=== PATIENT | male | born 1955 | race Caucasian/White ===

== ENCOUNTER 2024-10-11 15:01 | Emergency (ER) | payer OTHER, SELFPAY ==
[2024-10-11 15:14] VITALS: BP 102/67; PULSE 82; RESP 20; TEMP 36.6; O2SAT 95
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
--- NOTE | 2024-10-11 16:07 | PC.NURSE ---
Pt got up and left and stated he did not want to wait for his paperwork because he was hungry. PT also stated he was happy with the provider that seen him he did a good job
--- NOTE | 2024-10-11 17:10 | PC.NURSE ---
Patient eloped prior to receiving discharge paperwork. patient refused medications, patient stated he did not want to wait and he understood when to have sutures removed.
== END 2024-10-11 17:15 | disposition home or self-care (01) ==
LOC: SERX 17:23
PROVIDERS: Emergency Provider Emergency Medicine
DX: S61.217A Laceration without foreign body of left little finger without damage to nail, initial encounter (principal); V28.49XA Other motorcycle driver injured in noncollision transport accident in traffic accident, initial encounter
CPT/HCPCS: 12002; 99283

== ENCOUNTER 2024-10-20 10:08 | Outpatient (CLI) | payer OTHER, SELFPAY ==
[2024-10-17 11:00] VITALS: BMI 19.2
[2024-10-20] VITALS (8 sets, daily range): BP systolic 93–118; BP diastolic 55–72; PULSE 45–73; RESP 12–23; TEMP 36.6; O2SAT 95–97
[2024-10-20] MEDS: fentaNYL CIT INJ 50 mCg/ML AMP 2ML 75 MCG IVP (12:24)
[2024-10-20] MEDS: MIDAZOLAM INJ 1 MG/ML VIAL 2 ML 2 MG IV (12:24)
--- NOTE | 2024-10-20 12:29 | EKG_ITS ---
[facility] Test Date: 2024-10-20 Pat Name: DOUGLAS BAKER Department: Room: - Gender: Male [employer]: : 1955 Requested By: Que Roberts Order Number: [id number] Reading MD: Que Roberts Measurements Intervals Concepcion Rate: 43 P: 88 VA: 173 QRS: -70 QRSD: 109 T: 100 QT: 456 QTc: 389 Interpretive Statements SINUS BRADYCARDIA WITH OCCASIONAL SUPRAVENTRICULAR PREMATURE COMPLEXES POSSIBLE LEFT ATRIAL ENLARGEMENT PATTERN CONSISTENT WITH PULMONARY DISEASE LEFT ANTERIOR FASCICULAR BLOCK NONSPECIFIC T-WAVE ABNORMALITY Compared to ECG 10/29/2022 05:07:35 Atrial fibrillation no longer present Ventricular premature complex(es) no longer present Aberrant conduction of supraventricular beat(s) no longer present Left ventricular hypertrophy no longer present Possible ischemia no longer present T-wave abnormality still present /store/S0/[id number]/ecg/[id number].pdf
--- NOTE | 2024-10-20 17:49 | ESOP_ITS ---
RE: DOUGLAS BAKER : 1955 DATE OF PROCEDURE September, PROCEDURE PERFORMED: Synchronized cardioversion. PREPROCEDURE DIAGNOSIS: Atrial fibrillation. POSTPROCEDURE DIAGNOSES: 1. Successful synchronous cardioversion using 100 joules of energy. 2. Conscious sedation 30 minutes duration. DIAGNOSIS: Atrial fibrillation, rapid ventricular response, symptomatic. HISTORY AND INDICATIONS: The patient is a 69-year-old male with history of hypertension, paroxysmal atrial fibrillation, rapid rate control, now has symptoms of shortness of breath and palpitations. Synchronous cardioversion recommended. The patient has been anticoagulated more than one month with Eliquis and synchronized cardioversion is recommended. PROCEDURE IN DETAIL: The patient was brought to cardiac catheterization laboratory. _ was given 2 mg of Versed and 50 mcg of fentanyl for sedation. . Synchronized cardioversion using only 100 joules of energy x1, converted to sinus rhythm, sinus bradycardia. EKG showed heart rate of 45, marked sinus bradycardia. RECOMMENDATIONS: Continue medical management. Discontinue metoprolol completely, and we will monitor closely. Continue Eliquis. Monitor the patient again for further recurrence of arrhythmia. DT: 16:23:54 TT: 17:25:00 Ref: [id number] - TID: [id number] MTDD
== END 2024-10-20 14:00 | disposition home or self-care (01) ==
PROVIDERS: PCP Internal Medicine; Referring Provider Internal Medicine Cardiovascular Disease; Visit Provider Internal Medicine Cardiovascular Disease
PROC: 5A2204Z Restoration of Cardiac Rhythm, Single (ICD-10-PCS; CPT 92960; principal; 2024-10-20 11:30)
DX: I48.0 Paroxysmal atrial fibrillation (principal); R00.1 Bradycardia, unspecified; I10 Essential (primary) hypertension; E11.9 Type 2 diabetes mellitus without complications; I42.8 Other cardiomyopathies; I49.3 Ventricular premature depolarization; J44.9 Chronic obstructive pulmonary disease, unspecified; Z79.01 Long term (current) use of anticoagulants; Z79.84 Long term (current) use of oral hypoglycemic drugs; Z79.899 Other long term (current) drug therapy
CPT/HCPCS: 92960; 93005; J2250; J3010

== ENCOUNTER → 2024-10-28 | Outpatient (CLI) | payer OTHER, SELFPAY ==
[2024-10-28 09:47] LABS: Basophils % (Auto) 1 % (0-2.5); Eosinophils # (Auto) 0.2 Thou/mm3 (0.0-0.5); Eosinophils % (Auto) 3 % (0-10); Hematocrit 40.5 % (41.0-53.0); Hemoglobin 13.7 g/dL (13.5-16.0); Immature Granulocytes % (Auto) 0 % (0-0); Immature Granulocytes Auto 0.02 Thou/mm3 (0.00-0.00); Lymphocytes # (Auto) 2.8 Thou/mm3 (1.0-4.8); Lymphocytes % (Auto) 38 % (10-50); Mean Corpuscular HGB Conc 33.8 g/dl (31.0-37.0); Mean Corpuscular Hemoglobin 30.9 pg (25.0-35.0); Mean Corpuscular Volume 91 fL (80-100); Monocytes # (Auto) 0.5 Thou/mm3 (0.0-0.8); Monocytes % (Auto) 7 % (0-12); Neutrophils # (Auto) 3.7 Thou/mm3 (1.8-7.7); Neutrophils % (Auto) 51 % (37-80); Nucleated Red Blood Cell % 0 /100 WBC (0); Platelet Count 212 Thou/mm3 (140-440); RDW Standard Deviation 42.9 fL (35.1-43.9); Red Blood Count 4.44 Miln/mm3 (4.50-5.90); White Blood Count 7.2 Thou/mm3 (3.8-10.6)
[2024-10-28 09:58] LABS: Glucose Estimated Average 183 mg/dL (80-131)
[2024-10-28 10:04] LABS: Prostate Specific Antigen 0.96 ng/mL (0-4.00)
[2024-10-28 10:09] LABS: Vitamin B12 505 pg/mL (211-911); Vitamin D 25 Hydroxy Total 47.9 ng/mL (7.3-40.2)
[2024-10-28 10:16] LABS: Collection Type, Urine Clean Catch; Squamous Epithelial Cell,Urine 0 /hpf (0-5)
[2024-10-28 10:28] LABS: Alanine Aminotransferase 20 U/L (10-49); Albumin, Serum 4.2 gm/dL (3.4-4.8); Alkaline Phosphatase 53 U/L (46-116); Anion Gap 5 (7-16); Aspartate Amino Transferase 19 U/L (0-34); BUN/Creatinine Ratio 26 Ratio (12-20); Bilirubin,Total 0.4 mg/dL (0.3-1.2); Blood Urea Nitrogen 26 mg/dL (9-23); Calcium 9.4 mg/dL (8.3-10.6); Calcium (Corrected) 9.4 mg/dL (8.5-10.1); Carbon Dioxide 29.2 mMol/L (20.0-31.0); Chloride 103 mMol/L (98-107); Globulin 2.1 gm/dL (2.3-3.5); Glucose 90 mg/dL (74-106); Osmolality,Calculated 278 (275-295); Potassium 5.2 mMol/L (3.4-5.1); Sodium 137 mMol/L (136-145); Thyroid Stimulating Hormone 3.11 uIU/mL (0.55-4.78); Total Protein 6.3 gm/dL (5.7-8.2); eGFR > 60 See Note
[2024-10-28 10:43] LABS: Bilirubin,Urine Negative (Negative); Blood,Urine Negative (Negative); Clarity,Urine Clear (Clear/Hazy); Color,Urine Lt-Yellow (Lt Yel-Yel); Glucose, Urine Negative (Negative); Hyaline Casts,Urine < 1 /hpf (0-1); Ketones,Urine Negative (Negative); Leukocyte Esterase,Urine Negative (Negative); Nitrite,Urine Negative (Negative); PH,Urine 5.5 (5.0-7.0); Protein,Urine Negative (Neg - Trace); RBC,Urine 1 /hpf (0-3); Specific Gravity,Urine 1.026 (1.001-1.035); Urobilinogen,Urine Negative mg/dL (0.0-1.0); WBC,Urine 2 /hpf (0-5)
[2024-10-28 10:56] LABS: Creatinine MALB Rnd Ur 107 mg/dL (30-125); Microalbumin Creat Ratio 6 mg/gCrea (<30); Microalbumin, Random Urine 6 mg/L (0-300)
[2024-10-28 12:18] LABS: Cardiac Risk Estimate 3.8 RATIO (4.0-6.7); Cholesterol 166 mg/dL (132-200); HDL Cholesterol 44 mg/dL (40-60); LDL Cholesterol,Calculated 97 mg/dL (0-130); Triglycerides 126 mg/dL (30-150); Uric Acid 4.6 mg/dL (3.7-9.2)
== END | disposition home or self-care (01) ==
LOC: COPL 08:57
PROVIDERS: PCP Internal Medicine; Referring Provider Internal Medicine; Visit Provider Internal Medicine
DX: Z00.00 Encounter for general adult medical examination without abnormal findings (principal); E78.5 Hyperlipidemia, unspecified; E11.9 Type 2 diabetes mellitus without complications; I10 Essential (primary) hypertension
CPT/HCPCS: 36415; 80053; 80061; 81001; 82043; 82306; 82570; 82607; 83036; 84153; 84443; 84550; 85025

== ENCOUNTER → 2025-03-09 | Outpatient (CLI) | payer OTHER, SELFPAY ==
[2025-03-09 09:26] LABS: Basophils # (Auto) 0.1 Thou/mm3 (0.0-0.2); Basophils % (Auto) 1 % (0-2.5); Eosinophils # (Auto) 0.2 Thou/mm3 (0.0-0.5); Eosinophils % (Auto) 2 % (0-10); Hematocrit 41.7 % (41.0-53.0); Hemoglobin 13.8 g/dL (13.5-16.0); Immature Granulocytes Auto 0.02 Thou/mm3 (0.00-0.00); Lymphocytes # (Auto) 2.4 Thou/mm3 (1.0-4.8); Lymphocytes % (Auto) 30 % (10-50); Mean Corpuscular HGB Conc 33.1 g/dl (31.0-37.0); Mean Corpuscular Hemoglobin 31.6 pg (25.0-35.0); Mean Corpuscular Volume 95 fL (80-100); Monocytes # (Auto) 0.6 Thou/mm3 (0.0-0.8); Monocytes % (Auto) 7 % (0-12); Neutrophils # (Auto) 4.9 Thou/mm3 (1.8-7.7); Neutrophils % (Auto) 60 % (37-80); Nucleated Red Blood Cell # 0.00 Thou/mm3 (0.00-0.00); Nucleated Red Blood Cell % 0 /100 WBC (0); Platelet Count 209 Thou/mm3 (140-440); RDW Standard Deviation 43.3 fL (35.1-43.9); Red Blood Count 4.37 Miln/mm3 (4.50-5.90); White Blood Count 8.1 Thou/mm3 (3.8-10.6)
[2025-03-09 09:34] LABS: Glucose Estimated Average 171 mg/dL (80-131); Hemoglobin A1C 7.6 % Hgb (4.8-6.0)
[2025-03-09 09:48] LABS: Alanine Aminotransferase 28 U/L (10-49); Albumin, Serum 4.2 gm/dL (3.4-4.8); Albumin/Globulin Ratio 2.2 (1.2-2.2); Alkaline Phosphatase 74 U/L (46-116); Anion Gap 9 (7-16); Aspartate Amino Transferase 21 U/L (0-34); BUN/Creatinine Ratio 16 Ratio (12-20); Bilirubin,Total 0.3 mg/dL (0.3-1.2); Blood Urea Nitrogen 19 mg/dL (9-23); Calcium 9.6 mg/dL (8.3-10.6); Calcium (Corrected) 9.6 mg/dL (8.5-10.1); Carbon Dioxide 27.9 mMol/L (20.0-31.0); Cardiac Risk Estimate 2.4 RATIO (4.0-6.7); Chloride 104 mMol/L (98-107); Cholesterol 112 mg/dL (132-200); Creatinine (Component) 1.2 mg/dL (0.6-1.3); Globulin 1.9 gm/dL (2.3-3.5); Glucose 111 mg/dL (74-106); HDL Cholesterol 47 mg/dL (40-60); LDL Cholesterol,Calculated 47 mg/dL (0-130); Osmolality,Calculated 284 (275-295); Potassium 5.5 mMol/L (3.4-5.1); Sodium 141 mMol/L (136-145); Total Protein 6.1 gm/dL (5.7-8.2); Triglycerides 92 mg/dL (30-150); eGFR > 60 See Note
[2025-03-09 10:05] LABS: Creatinine MALB Rnd Ur 136 mg/dL (30-125); Microalbumin Creat Ratio 7 mg/gCrea (<30); Microalbumin, Random Urine 10 mg/L (0-300)
== END | disposition home or self-care (01) ==
LOC: COPL 08:15
PROVIDERS: PCP Internal Medicine Cardiovascular Disease; Referring Provider Internal Medicine; Visit Provider Internal Medicine
DX: E11.9 Type 2 diabetes mellitus without complications (principal); I10 Essential (primary) hypertension; E78.5 Hyperlipidemia, unspecified
CPT/HCPCS: 36415; 80053; 80061; 82043; 82570; 83036; 85025

== ENCOUNTER → 2025-06-18 | Outpatient (CLI) | payer OTHER, SELFPAY ==
[2025-06-18 08:44] LABS: Alanine Aminotransferase 35 U/L (10-49); Albumin, Serum 4.9 gm/dL (3.4-4.8); Albumin/Globulin Ratio 2.0 (1.2-2.2); Alkaline Phosphatase 78 U/L (46-116); Anion Gap 11 (7-16); Aspartate Amino Transferase 30 U/L (0-34); BUN/Creatinine Ratio 18 Ratio (12-20); Bilirubin,Total 0.8 mg/dL (0.3-1.2); Blood Urea Nitrogen 27 mg/dL (9-23); Calcium 9.8 mg/dL (8.3-10.6); Calcium (Corrected) 9.8 mg/dL (8.5-10.1); Carbon Dioxide 27.7 mMol/L (20.0-31.0); Chloride 101 mMol/L (98-107); Creatinine (Component) 1.5 mg/dL (0.6-1.3); Globulin 2.4 gm/dL (2.3-3.5); Glucose 189 mg/dL (74-106); Osmolality,Calculated 289 (275-295); Potassium 5.5 mMol/L (3.4-5.1); Sodium 140 mMol/L (136-145); Total Protein 7.3 gm/dL (5.7-8.2); eGFR 50 See Note
--- NOTE | 2025-06-18 08:45 | XR_ITS ---
EXAMINATION: Prostate sonography complete INDICATIONS: Frequent urination 6 months Date and time: June 18, 2025, 0743 hours TECHNIQUE AND FINDINGS: Multiple transabdominal sonographic images prostate Prostate 3.4 x 4.1 x 5.4 cm volume 38 cc multiple calcifications Suspicious for solid mass anterior prostate 25 x 25 x 23 mm IMPRESSION: Recommend transrectal prostate sonography follow-up to confirm 25 x 25 x 23 mm prostate nodule
[2025-06-18 08:49] LABS: Carcinoembryonic Antigen 5.1 ng/mL (0.0-5.0)
--- NOTE | 2025-06-18 09:15 | XR_ITS ---
Examination: CT chest, without intravenous contrast. CT abdomen, without intravenous contrast. CT pelvis, without intravenous contrast. 2-D sagittal and coronal reconstructions. 3-D reconstructions. Date and time of exam: June 18, 2025, 0752 hours Abnormal weight loss over 1 year, smoking history COMPARISON: March 30, 2023 CTDI vol (mgy) 4.39 DLP (MGycm) 317 Technique: Multiple CT images, 3.0 mm slice thickness, obtained chest, abdomen, pelvis, with the high-resolution 64 slice scanner.. Sagittal and coronal 2-D reconstructions are obtained. 3-D reconstructions Low dose protocols were performed. One or more of the following dose reduction techniques were used; automated exposure control, adjustment of the mA and/or KV according to patient size, use of iterative reconstruction technique. Findings: No thoracic aortic aneurysm dilatation Pulmonary artery segments are not enlarged. No paratracheal tracheobronchial or bronchopulmonary adenopathy. 4 mm pleural-based pulmonary nodule right upper lobe image 73 Focal pleural thickening upper lateral thoracic wall image 82 3 mm pulmonary nodule right upper lobe image 193 3 mm pulmonary nodule right lower lobe image 234 3 mm pulmonary nodule left lower lobe image 247 3 mm pulmonary nodule right lower lobe image 295 No pneumonia or pulmonary edema No visualized liver or splenic lesion Absent gallbladder No pancreatic or adrenal mass Bilateral benign renal cysts No renal or ureteral calculi Aorta normal size No bowel obstruction No pericecal inflammatory change Normal appendix No diverticulitis Urinary bladder wall thickening up to 9 mm Moderate osteopenia IMPRESSION: Noncalcified pulmonary nodules as above, with the studies baseline recommend 6-month follow-up CT chest without contrast No pneumonia or pulmonary edema or pleural disease No acute process in the abdomen or pelvis Urinary bladder wall thickening up to 9 mm, clinical correlation advised, differential would include cystitis, recommend 3-month follow-up urinary bladder sonography
[2025-06-23 06:59] LABS: CA 19-9 Antigen* 14 U/mL (<34)
== END | disposition home or self-care (01) ==
LOC: CDIM 06:50
PROVIDERS: PCP Internal Medicine; Referring Provider Internal Medicine; Visit Provider Internal Medicine
DX: N40.0 Benign prostatic hyperplasia without lower urinary tract symptoms (principal); R91.8 Other nonspecific abnormal finding of lung field; N32.89 Other specified disorders of bladder; R63.4 Abnormal weight loss
CPT/HCPCS: 36415; 71250; 74176; 76873; 80053; 82378; 86301